=== PATIENT | female | born 1970 | race Hispanic/Latino ===

== ENCOUNTER → 2020-01-16 | Outpatient (CLI) | payer MEDICAID ==
--- NOTE | 2020-01-16 12:41 | NUR ---
MBSS COMPLETED. TRANSIENT PENETRATION WITH THIN LIQUIDS. RECOMMEND REGULAR TEXTURE, NECTAR-THICK LIQUIDS; PILLS WHOLE WITH LIQUIDS. RECOMMENDATIONS: 1. SKILLED SPEECH THERAPY 2-3XWK 2. REPEAT MBSS AFTER THERAPEUTIC INTERVENTION AND RADIATION THERAPY. BRANCH OFFICER EDUCATED Pt ON RISKS AND CONSEQUENCES OF ASPIRATION. BRANCH OFFICER PROVIDED INSTRUCTIONS ON HOW TO REACH NECTAR-THICK LIQUIDS. A CAN OF THICKENER WAS PROVIDED AT THIS TIME. Pt VERBALIZED UNDERSTANDING AND COMPLIANCE WITH ALL RECOMMENDATIONS. ALL QUESTIONS ANSWERED. Addendum: 01/16/20 at 1247 by TONG FRANK, [facility] Amended: Links added.
== END | disposition home or self-care (01) ==
LOC: RAH 10:50
PROVIDERS: ATTEND Otolaryngology
DX: C02.9 Malignant neoplasm of tongue, unspecified (principal); R13.10 Dysphagia, unspecified
CPT/HCPCS: 74230; 92611

== ENCOUNTER → 2021-05-21 | Outpatient (CLI) | payer MEDICARE ==
[~2021-05-21] MED LIST: LIDOCAINE HCL 4% LTA SOL 4 ML VIAL ONE
== END | disposition home or self-care (01) ==
LOC: WHH 10:14
PROVIDERS: ATTEND Family Medicine
DX: E11.621 Type 2 diabetes mellitus with foot ulcer (principal); L97.512 Non-pressure chronic ulcer of other part of right foot with fat layer exposed; E11.42 Type 2 diabetes mellitus with diabetic polyneuropathy; I10 Essential (primary) hypertension; E66.01 Morbid (severe) obesity due to excess calories; E03.9 Hypothyroidism, unspecified; Z85.3 Personal history of malignant neoplasm of breast; Z85.810 Personal history of malignant neoplasm of tongue; Z85.118 Personal history of other malignant neoplasm of bronchus and lung; Z68.43 Body mass index [BMI] 50.0-59.9, adult
CPT/HCPCS: 11042; 87070; A4450; A6021; A6197

== ENCOUNTER → 2021-05-28 | Outpatient (CLI) | payer MEDICARE | END | disposition home or self-care (01) | LOC: WHH 09:19 | PROVIDERS: ATTEND Family Medicine | DX: E11.621 Type 2 diabetes mellitus with foot ulcer (principal); L97.512 Non-pressure chronic ulcer of other part of right foot with fat layer exposed; E11.42 Type 2 diabetes mellitus with diabetic polyneuropathy; I10 Essential (primary) hypertension; E66.01 Morbid (severe) obesity due to excess calories; E03.9 Hypothyroidism, unspecified; Z85.3 Personal history of malignant neoplasm of breast; Z85.810 Personal history of malignant neoplasm of tongue; Z85.118 Personal history of other malignant neoplasm of bronchus and lung; Z68.43 Body mass index [BMI] 50.0-59.9, adult | CPT/HCPCS: 11042; A6021; A6197 ==

== ENCOUNTER → 2021-06-04 | Outpatient (CLI) | payer MEDICARE | END | disposition home or self-care (01) | LOC: WHH 09:21 | PROVIDERS: ATTEND Family Medicine | DX: E11.621 Type 2 diabetes mellitus with foot ulcer (principal); L97.512 Non-pressure chronic ulcer of other part of right foot with fat layer exposed; E11.42 Type 2 diabetes mellitus with diabetic polyneuropathy; I10 Essential (primary) hypertension; E66.01 Morbid (severe) obesity due to excess calories; E03.9 Hypothyroidism, unspecified; Z85.3 Personal history of malignant neoplasm of breast; Z85.810 Personal history of malignant neoplasm of tongue; Z68.43 Body mass index [BMI] 50.0-59.9, adult | CPT/HCPCS: 11042; A6021; A6197 ==

== ENCOUNTER → 2021-06-11 | Outpatient (CLI) | payer MEDICARE | END | disposition home or self-care (01) | LOC: WHH 08:59 | PROVIDERS: ATTEND Family Medicine | DX: E11.621 Type 2 diabetes mellitus with foot ulcer (principal); L97.512 Non-pressure chronic ulcer of other part of right foot with fat layer exposed; E11.42 Type 2 diabetes mellitus with diabetic polyneuropathy; I10 Essential (primary) hypertension; E66.01 Morbid (severe) obesity due to excess calories; E03.9 Hypothyroidism, unspecified; Z85.3 Personal history of malignant neoplasm of breast; Z85.810 Personal history of malignant neoplasm of tongue; Z68.43 Body mass index [BMI] 50.0-59.9, adult | CPT/HCPCS: 11042; 87070; A6021; A6197 ==

== ENCOUNTER → 2021-06-18 | Outpatient (CLI) | payer MEDICARE | END | disposition home or self-care (01) | LOC: WHH 08:29 | PROVIDERS: ATTEND Family Medicine | DX: E11.621 Type 2 diabetes mellitus with foot ulcer (principal); L97.522 Non-pressure chronic ulcer of other part of left foot with fat layer exposed; E11.42 Type 2 diabetes mellitus with diabetic polyneuropathy; I10 Essential (primary) hypertension; E66.01 Morbid (severe) obesity due to excess calories; E03.9 Hypothyroidism, unspecified; Z85.3 Personal history of malignant neoplasm of breast; Z85.810 Personal history of malignant neoplasm of tongue; Z68.43 Body mass index [BMI] 50.0-59.9, adult | CPT/HCPCS: 11042; A6021; A6197 ==

== ENCOUNTER → 2021-06-25 | Outpatient (CLI) | payer MEDICARE | END | disposition home or self-care (01) | LOC: WHH 08:21 | PROVIDERS: ATTEND Family Medicine | DX: E11.621 Type 2 diabetes mellitus with foot ulcer (principal); L97.522 Non-pressure chronic ulcer of other part of left foot with fat layer exposed; E11.42 Type 2 diabetes mellitus with diabetic polyneuropathy; I10 Essential (primary) hypertension; E66.01 Morbid (severe) obesity due to excess calories; E03.9 Hypothyroidism, unspecified; Z85.3 Personal history of malignant neoplasm of breast; Z85.810 Personal history of malignant neoplasm of tongue; Z68.43 Body mass index [BMI] 50.0-59.9, adult | CPT/HCPCS: 11042; A6021; A6197 ==

== ENCOUNTER → 2021-07-02 | Outpatient (CLI) | payer MEDICARE ==
[~2021-07-02] MED LIST changes: +HONEY 1 APPL/ML TUBE TP ONE
== END | disposition home or self-care (01) ==
LOC: WHH 08:48
PROVIDERS: ATTEND Family Medicine
DX: I87.331 Chronic venous hypertension (idiopathic) with ulcer and inflammation of right lower extremity (principal); L97.812 Non-pressure chronic ulcer of other part of right lower leg with fat layer exposed; E11.42 Type 2 diabetes mellitus with diabetic polyneuropathy; E11.21 Type 2 diabetes mellitus with diabetic nephropathy; I10 Essential (primary) hypertension; E11.51 Type 2 diabetes mellitus with diabetic peripheral angiopathy without gangrene; E78.5 Hyperlipidemia, unspecified; E78.00 Pure hypercholesterolemia, unspecified; M19.90 Unspecified osteoarthritis, unspecified site; I87.2 Venous insufficiency (chronic) (peripheral); F17.200 Nicotine dependence, unspecified, uncomplicated; F41.9 Anxiety disorder, unspecified; F32.9 Major depressive disorder, single episode, unspecified; Z86.718 Personal history of other venous thrombosis and embolism; Z68.37 Body mass index [BMI] 37.0-37.9, adult; Z86.73 Personal history of transient ischemic attack (TIA), and cerebral infarction without residual deficits
CPT/HCPCS: A4450; A6197; G0463

== ENCOUNTER → 2021-07-09 | Outpatient (CLI) | payer MEDICARE ==
[~2021-07-09] MED LIST changes: -HONEY 1 APPL/ML TUBE TP ONE
== END | disposition home or self-care (01) ==
LOC: WHH 08:16
PROVIDERS: ATTEND Family Medicine
DX: E11.621 Type 2 diabetes mellitus with foot ulcer (principal); L97.522 Non-pressure chronic ulcer of other part of left foot with fat layer exposed; E11.42 Type 2 diabetes mellitus with diabetic polyneuropathy; I10 Essential (primary) hypertension; E66.01 Morbid (severe) obesity due to excess calories; E03.9 Hypothyroidism, unspecified; Z85.3 Personal history of malignant neoplasm of breast; Z85.810 Personal history of malignant neoplasm of tongue; Z68.43 Body mass index [BMI] 50.0-59.9, adult
CPT/HCPCS: 11042; A6196

== ENCOUNTER → 2021-07-16 | Outpatient (CLI) | payer MEDICARE | END | disposition home or self-care (01) | LOC: WHH 08:22 | PROVIDERS: ATTEND Family Medicine | DX: E11.621 Type 2 diabetes mellitus with foot ulcer (principal); L97.522 Non-pressure chronic ulcer of other part of left foot with fat layer exposed; E11.42 Type 2 diabetes mellitus with diabetic polyneuropathy; I10 Essential (primary) hypertension; E66.01 Morbid (severe) obesity due to excess calories; E03.9 Hypothyroidism, unspecified; Z85.3 Personal history of malignant neoplasm of breast; Z85.810 Personal history of malignant neoplasm of tongue; Z68.43 Body mass index [BMI] 50.0-59.9, adult | CPT/HCPCS: A6196; G0463 ==

== ENCOUNTER 2025-01-21 13:13 | Emergency (ER) | payer MEDICARE, OTHER ==
[~2025-01-21] VITALS: Ht 162.6 cm; Wt 145.6 kg
--- NOTE | 2025-01-21 16:04 | ERN ---
ED Note History of Present Illness Stated Complaint: TOE INJURY Chief Complaint: Laceration/Avulsion Time Seen by MD: 14:28 Time Seen by Midlevel: 15:45 Dictation: Ms. Yeh is a 54 year old female with history of obesity, type II DM, breast/neck/lung cancer, and hypertension who in the emergency department this afternoon for evaluation of toe laceration. She states she struck her right 4th toe on a metal pot and has a laceration on the bottom of her foot. She states she does not know when her last tetanus shot was. Bleeding is controlled. She denies additional injury. Allergies: Coded Allergies: No Known Allergies (Unverified Allergy, Unknown, 01/21/25) Past Medical History Past Medical History: Cancer, Diabetes-Type II, Hypertension, Other Additional Past Medical Hx: HX OF BREAST, NECK, LUNG, TONGUE CA Surgical History: Surgical History Other: LT NEPHRECTOMY PSYCH History: no pertinent psych hx Social History: Negative RN Note Reviewed/Agreed w/PFSH: Yes Review of System Dictation REVIEW OF SYSTEMS: CONSTITUTIONAL: Patient denies fevers, chills, sweats and weight changes. EYES: Patient denies any visual symptoms. EARS, NOSE, AND THROAT: No difficulties with hearing. No symptoms of rhinitis or sore throat. CARDIOVASCULAR: Patient denies chest pains, palpitations, orthopnea and paroxysmal nocturnal dyspnea. RESPIRATORY: No dyspnea on exertion, no wheezing or cough. GI: No nausea, vomiting, diarrhea, constipation, abdominal pain, hematochezia or melena. : No urinary hesitancy or dribbling. No nocturia or urinary frequency. No abnormal urethral discharge. MUSCULOSKELETAL: No myalgias or arthralgias. NEUROLOGIC: No chronic headaches, no seizures. Patient denies numbness, tingling or weakness. PSYCHIATRIC: Patient denies problems with mood disturbance. No problems with anxiety. ENDOCRINE: No excessive urination or excessive thirst. DERMATOLOGIC: Reports laceration right 4th toe. Initial Vital Sign VS Vital Signs Date Time Temp Pulse Resp B/P (MAP) Pulse Ox O2 Delivery O2 Flow Rate FiO2 01/21/25 14:09 98.1 90 18 183/87 98 Room Air 0 Physical Exam Dictation Vital signs: Reviewed. Afebrile Constitutional: No acute distress. Non-toxic appearing. Unkempt. Head/Face: Normocephalic, atraumatic. Eyes: Periorbital areas with no swelling, redness, or edema. Lids and lashes are normal. Conjunctival injection is absent. Sclera anicteric. Pupils equal, round, reactive to light. ENT: Pinnas intact and no signs of trauma or erythema. Ear canals clear and no discharge. TMs no erythema. No nasal discharge or bleeding noted. Oropharynx with no exudate, redness, swelling, masses, exudates, or evidence of obstruction. Uvula midline. Mucous membranes moist. Neck: Trachea midline, no masses palpated, and no cervical lymphadenopathy. No swelling. Supple, full range of motion. Chest/Axilla: No tenderness, no crepitus, no paradoxical movement, no retractions. Cardiovascular: Regular rate, regular rhythm, no murmur, no gallops. Symmetric pulses. No peripheral edema. Respiratory: Respirations even and unlabored. Lung sounds clear; no wheezes, rales or rhonchi. Room air SpO2 98% Gastrointestinal: Obese No distention is appreciated. Bowel sounds are normal. No mass or organomegaly . There is no tenderness. No rebound. No rigidity. No voluntary or involuntary guarding. No Ortiz's sign. Neurological: Normal speech, gross motor function intact, gross sensory function intact. No focal weakness/Paresthesia. Musculoskeletal/Extremities: All extremities have full range of motion, no pain or tenderness on palpation. Symmetric pulses. Ambulating well Integumentary: Skin is normal color, warm and dry. Cap refill less than 3 seconds. 1.0 cm laceration to the bottom of right 4th toe. Bleeding is controlled. Results (Laboratory/Radiology) X-RAY Comment: PATIENT: INOCENTE YEH MR#: [id number] : 1970 SEX: F AGE: 54 LOCATION: ED ORDER [id number] STATUS: REG ER REPORT#: [id number] SERVICE 1600 REASON: possible FB metal/left 4th toe laceration ORDERING PHYSICIAN: MARGARET BOLDEN NP PROCEDURE: TOES RT - TOE(S) 2+VWS RT TOE(S) 2+VWS RT HISTORY: Fourth toe laceration COMPARISON: None TECHNIQUE: 3 images of right fourth toe were obtained. FINDINGS: There is no acute displaced fracture or dislocation. There is soft tissue swelling. Nondisplaced fracture cannot be excluded. Degenerative changes are seen. IMPRESSION: 1. Findings as described above. DICTATED BY: CARRIE ESQUIVEL MD DATE: 01/21/251653 ELECTRONICALLY SIGNED BY: CARRIE ESQUIVEL MD DATE: 01/21/251657 ED Course ED Course Orders Procedure Category Date Status Time Toe(S) 2+Vws Rt RAD 01/21/25 Resulted 16:00 Tetanus,Diphtheria PHA 01/21/25 Complete Tox [Adult] (Diphther 16:00 *Nursing CPOE 01/21/25 Transmitted Communication: 16:00 Laceration Tray Set CPOE 01/21/25 Transmitted Up (Er) 16:00 Current Medications Medications (Trade) Dose Ordered Sig/Batool Route PRN Reason Start Time Stop Time Status Last Admin Dose Admin Tetanus/ Diphtheria Toxoids Adsorbed (DiphthERIA-teTANUS TOXOID [ADULT]/ DECAVAC) 0.5 ml ONCE ONCE IM 01/21/25 16:00 01/21/25 16:02 DC 01/21/25 16:47 Vital Signs Date Time Temp Pulse Resp B/P (MAP) Pulse Ox O2 Delivery O2 Flow Rate FiO2 01/21/25 14:09 98.1 90 18 183/87 98 Room Air 0 ED course. X-ray of the right foot/toes negative for fracture or foreign body. Noted soft tissue swelling. She received update tetanus toxoid. Wound was irrigated/soaked with NS/Betadine. Suture repair with interrupted sutures x2. Tolerated procedure well. Instructed on wound care/anticipatory care and answered all questions. She will follow up with her primary care physician. Medical Decision Making MDM MDM: Differential diagnosis:laceration, FB toe Rationale: Tests considered and ordered secondary to shared decision making include: Previous outside records reviewed: Old ER visits. Risk of complication and/or morbidity or mortality of patient management: None Medications-Per medication reconciliation Need for hospitalization: Patient does not meet criteria for hospitalization. Need for emergency major/minor surgery: No There are no social concerns with this patient. Prescription drug management: Ibuprofen, Cephalexin Prescriptions will include symptomatic care Patient's prior external medical records from other ER visits were reviewed by me as indicated. Prior testing and results from previous visits were reviewed. Prior tests were taken into account with medical decision making and resource utilization, independent historian/historians were used to obtain complete medical history. I independently interpreted the test that were performed, results were reviewed by me and considered findings on radiology if ordered. Medical management and examination interpretation discussions were had by me with other qualified healthcare professionals as indicated for the patient's care. Procedure Wound Location: lower extremity (Right 4th toe) Wound Length (cm): 1 Wound's Depth, Shape: linear Wound Explored: clean Betadine Prep?: Yes (Betadine soak as toe was very dirty.) Wound Repaired With: sutures Suture Size/Type: 5:0 DX & DISP Disposition: Discharge Departure Impression: Primary Impression: Laceration of toe Condition: Stable Scripts Ibuprofen (Ibuprofen) 600 Mg Tablet 600 MG PO Q6H PRN for PAIN, #12 TAB Prov: MARGARET BOLDEN NP 01/21/25 Cephalexin (Cephalexin) 500 Mg Capsule 1 CAP PO BID for 10 Days, #20 CAP 0 Refills Prov: MARGARET BOLDEN NP 01/21/25 Additional Instructions: Keep toe clean and dry for the 1st 24 hours. Then okay to shower. Sutures should stay in 10-14 days. Monitor closely for signs of infection: Fever, chills, swelling, surrounding redness, or drainage. Start cephalexin 500 mg twice daily for 10 days. Follow up with your primary care physician. Return to the emergency department for worsening of symptoms or concerns Referrals: KIMBERLY CARL (PCP) Time of Disposition: 18:00 MARGARET BOLDEN NP Jan 21, 2025 16:04
[2025-01-21] MEDS: teTANUS/diphthERIA TOXOID [ADULT] 0.5 ML VIAL IM ONE (16:47)
--- NOTE | 2025-01-21 16:58 | HMCIMG ---
TOE(S) 2+VWS RT HISTORY: Fourth toe laceration COMPARISON: None TECHNIQUE: 3 images of right fourth toe were obtained. FINDINGS: There is no acute displaced fracture or dislocation. There is soft tissue swelling. Nondisplaced fracture cannot be excluded. Degenerative changes are seen. IMPRESSION: 1. Findings as described above.
[2025-01-21] MEDS ORDERED: CEPH500C2 PO (17:59)
[2025-01-21] MEDS ORDERED: IBUP-2070 PO (17:59)
[2025-01-21 18:19] VITALS: BP 163/85; PULSE 81; RESP 16; TEMP 98.4; O2SAT 97
== END 2025-01-21 18:21 | disposition home or self-care (01) ==
LOC: EDH 13:13
DX: S91.114A Laceration without foreign body of right lesser toe(s) without damage to nail, initial encounter (principal); E11.9 Type 2 diabetes mellitus without complications; I10 Essential (primary) hypertension; Z85.810 Personal history of malignant neoplasm of tongue; Z90.5 Acquired absence of kidney; W22.8XXA Striking against or struck by other objects, initial encounter; Y93.89 Activity, other specified; Y92.89 Other specified places as the place of occurrence of the external cause; Y99.8 Other external cause status
CPT/HCPCS: 12001; 73660; 90471; 90714; 99283

== ENCOUNTER 2025-02-18 08:35 | Emergency (ER) | payer OTHER ==
[~2025-02-18] VITALS: Ht 162.6 cm; Wt 149.2 kg
[~2025-02-18 08:35] MED LIST changes: +CEPH500C2 PO; +IBUP-2070 PO; -LIDOCAINE HCL 4% LTA SOL 4 ML VIAL ONE
[2025-02-18 08:40] VITALS: BP 134/67; PULSE 78; RESP 16; TEMP 98; O2SAT 98
--- NOTE | 2025-02-18 08:50 | ERN ---
General Chief Complaint: Suture/Staple Removal Stated Complaint: SUTURE REMOVAL Time Seen by MD: 08:41 History of Present Illness Initial Comments Patient here for suture removal. Has two sutures bottom of the right 4th toe. Healing well. Allergies: Coded Allergies: No Known Allergies (Unverified Allergy, Unknown, 01/21/25) Home Meds Active Scripts Ibuprofen (Ibuprofen) 600 Mg Tablet, 600 MG PO Q6H PRN for PAIN, #12 TAB Prov:CYNTHIAMARGARET Dong Laura AGUIRRE 01/21/25 Cephalexin (Cephalexin) 500 Mg Capsule, 1 CAP PO BID for 10 Days, #20 CAP 0 Refills Prov:MARGARET BOLDEN Laura PATENT CHEMIST 01/21/25 Past Medical History Past Medical History: Cancer, Diabetes-Type II, Hypertension, Other Medical History Other: HX OF BREAST, NECK, LUNG, TONGUE CA Past Surgical History: Surgical History Other: LT NEPHRECTOMY Social History Social History: Negative ROS Dictation CONSTITUTIONAL: No chills, no fever, no weakness, no diaphoresis, no malaise. HEAD/FACE: No signs of trauma. EENT: No eye pain, no blurred vision, no tearing, no double vision, no ear pain, no ear discharge, no nose pain, no nasal congestion, no throat pain, no throat swelling, no mouth pain. RESPIRATORY: No cough, no orthopnea, no SOB, no stridor, no wheezing. CARDIOVASCULAR: No chest pain, no edema, no palpitations, no syncope. GASTROINTESTINAL/ABDOMINAL: No abdominal pain, no constipation, no diarrhea, no nausea, no vomiting. GENITOURINARY: No abnormal discharge, no dysuria, no frequent urination, no hematuria. No complaints of pain in the genitals. MUSCULOSKELETAL: No back pain, no gout, no joint pain, no joint swelling, no muscle pain, no muscle stiffness, no neck pain. INTEGUMENTARY: No change in color, no change in hair/nails, no dryness, no lesion, no lumps, no rash. NEUROLOGICAL/PSYCH: No anxiety, not depressed, no emotional problem, no headache, no numbness, no pre-existing deficit, no history of seizures, no tremors, no weakness. HEMATOLOGIC/LYMPHATIC: Not anemic, no history of blood clots, no apparent bleeding, no bruising, glands not swollen. All Systems Negative, Except as Noted. Physical Exam Physical Exam Dictation VITAL SIGNS: Reviewed. GENERAL APPEARANCE: Alert, oriented x3, no acute distress, obese. HEAD AND FACE: Non-traumatic. EYES: PERRL, pink conjunctivas, eyelid no trauma, anterior chamber clear. EARS: Pinnas intact and no signs of trauma or erythema. Ear canals clear and no discharge. TMs no erythema. NOSE: No discharge, no bleeding. OROPHARYNX: Mouth normal, teeth no caries, tongue pink. Pharynx clear, no erythema. Tonsils no exudates, no abscesses noted. Mucous membrane moist. NECK: Supple, non-tender, no thyromegaly, no masses, no JVD, no bruits. BREAST: Deferred. CHEST: No tenderness, no crepitus, no paradoxical movement, no retractions. LUNGS: Clear, well-ventilated, symmetric, no rales, no wheezing, no rhonchi, no stridor, good breath sounds bilaterally. HEART: Regular rate, regular rhythm, no murmur, no gallops. VASCULAR: No peripheral edema. ABDOMEN: Soft, positive bowel sounds, nondistended, no guarding, nontender, no rebound, no masses no hepatomegaly, no splenomegaly, no Ortiz's sign, no hernias. RECTAL: Deferred. GENITAL: Deferred. NEUROLOGICAL: Normal speech, gross motor function intact, gross sensory function intact. MUSCULOSKELETAL: Neck nontender, full range of motion, back nontender, full range of motion. EXTREMITIES: Nontender, full range of motion. SKIN: Color pink, dry, no turgor, no rash, no lacerations, no abrasions, no contusions. LYMPHATICS: Deferred. MDM Uncomplicated suture removal. Two sutures were removed. ED Course Vital Signs Date Time Temp Pulse Resp B/P (MAP) Pulse Ox O2 Delivery O2 Flow Rate FiO2 02/18/25 08:40 98.1 78 16 134/67 98 Room Air* 0 21 02/18/25 08:38 98.1 78 16 134/67 98 Room Air 0 DX & DISP Disposition: Discharge Departure Impression: Primary Impression: Visit for suture removal Condition: Stable Additional Instructions: The two sutures were removed. I recommend that you soak the foot and warm salt water. Follow up as needed. Referrals: KIMBERLY CARL (PCP) JOSE AREVALO DO Feb 18, 2025 08:50
== END 2025-02-18 09:02 | disposition home or self-care (01) ==
LOC: EDH 08:35
DX: S91.114D Laceration without foreign body of right lesser toe(s) without damage to nail, subsequent encounter (principal); E11.9 Type 2 diabetes mellitus without complications; I10 Essential (primary) hypertension; Z85.810 Personal history of malignant neoplasm of tongue; Z48.02 Encounter for removal of sutures; Z90.5 Acquired absence of kidney; X58.XXXD Exposure to other specified factors, subsequent encounter
CPT/HCPCS: 99281